=== PATIENT | female | born 2000 | race Two or more races ===

== ENCOUNTER 2024-12-03 10:31 | Emergency (ER) | payer OTHER ==
[2024-12-03 10:44] VITALS: RESP 18; TEMP 98.7; BMI 26.9
[2024-12-03 11:53] LABS: ABSOLUTE IMMATURE GRANULOCYTES 0.05 x10^3/uL (0.0-0.031); BASOPHILS # 0.03 x10^3/uL (0.01-0.08); EOSINOPHIL % 1.1 % (0.7-5.8); EOSINOPHILS # 0.09 x10^3/uL (0.04-0.36); MCHC 32.8 g/dl (32.2-35.5); MEAN CELL VOLUME 83.2 fl (79.4-94.8); MEAN PLT VOLUME 9.5 fl (9.4-12.3); MONOCYTE # 0.50 x10^3/uL (0.24-0.86); MONOCYTE % 6.0 % (4.7-12.5); RDW 13.7 % (12.1-16.5)
[2024-12-03 11:57] LABS: HCG,QUALITATIVE URINE Positive
[2024-12-03 12:01] LABS: EPI CELLS >36 /uL (0-25.1); HYALINE CASTS 5 /uL (0-3.1); URINE APPEARANCE TURBID; URINE BACTERIA >9,000 /uL (0-1359); URINE BILIRUBIN NEGATIVE (NEGATIVE); URINE COLOR RED; URINE GLUCOSE (UA) NEGATIVE (NEGATIVE); URINE KETONE 2+ (NEGATIVE); URINE LEUK ESTERASE 1+ (NEGATIVE); URINE NITRITE NEGATIVE (NEGATIVE); URINE PROTEIN 2+ (NEGATIVE); URINE UROBILINOGEN 1.0 mg/dL (0.2-1.0); URINE WBC 66 /uL (0-25.8)
[2024-12-03 12:38] LABS: GLUCOSE,RANDOM 81.0 mg/dL (74-106)
[2024-12-03 12:39] LABS: CO2 23.0 mmol/L (21-32)
[2024-12-03 12:42] LABS: CREATININE 0.5 mg/dL (0.55-1.3); SGOT/AST 18.0 U/L (15-37); SGPT/ALT 24.0 U/L (13-61)
[2024-12-03 12:44] LABS: TOT PROT 7.2 g/dl (6.4-8.2)
[2024-12-03 12:45] LABS: ALK PHOS 118.0 U/L (45-117)
[2024-12-03] MEDS: CEPHALEXIN MONOHYDRATE 500 MG CAPSULE (UD) PO ONE (13:29)
[2024-12-03 13:50] LABS: URINE RBC 246 /uL (0-23.9)
[2024-12-03 13:51] LABS: YEAST NONE SEEN (NEGATIVE)
[2024-12-03 14:13] VITALS: BP 104/71; PULSE 70
[2024-12-03] MEDS: METHOTREXATE SODIUM/PF 25 MG/ML VIAL IM ONE (17:13)
== END 2024-12-03 18:04 | disposition home or self-care (01) ==
LOC: JER 10:31
PROC: 3E0 Administration, Physiological Systems and Anatomical Regions, Introduction (ICD-10-PCS; principal; 2024-12-03)
DX: O00.90 Unspecified ectopic pregnancy without intrauterine pregnancy (principal)
CPT/HCPCS: 36415; 76817-TC; 80053; 81003; 84702; 84703; 85025; 86850; 86900; 86901; 87086; 99291; J9260